=== PATIENT | male | born 1960 | race Caucasian/White ===

== ENCOUNTER 2024-05-05 15:32 | Emergency (ER) | payer OTHER, SELFPAY ==
--- NOTE | ~2024-05-05 | XR_ITS ---
EXAMINATION: XR WRIST, RIGHT CLINICAL INFORMATION: Laceration question foreign body COMPARISON: None available. TECHNIQUE: PA, lateral, and oblique views of the right wrist. FINDINGS: No radiopaque body detected. Mild osteoarthritis of the first carpometacarpal joint with small marginal osteophytes. Subtle amorphous appearing calcification ulnar to the distal ulna perhaps related to old soft tissue injury XR/XR wrist RT min 3V IMPRESSION: 1. No radiopaque body detected. 2. Osteoarthritis of the first carpometacarpal joint. 3. Subtle calcification as above may reflect prior/old soft tissue trauma
[2024-05-05 15:52] VITALS: BP 164/108; PULSE 83; RESP 18; TEMP 36.6; O2SAT 99; BMI 33.0
--- NOTE | 2024-05-05 15:53 | ED.SKABFB ---
HPI - Skin/Abscess/Foreign Bdy General Chief complaint: Wound/Laceration Stated complaint: R wrist laceration Time Seen by Provider: 05/05/24 18:45 Source: patient Mode of arrival: ambulatory Limitations: no limitations History of Present Illness HPI narrative: Patient is a 63-year-old male who presents emergency department for evaluation of an accidental laceration to the volar aspect of the right wrist, reportedly horizontal across. Reports that there was active bleeding but not ?spraying out? pressure dressing applied. States that he was lifting a piece of glass into a dumpster when it shattered accidentally causing laceration. Reports last tetanus vaccination likely more than 5 years ago. Denies numbness tingling or cold sensation to the hand. Related Data Allergies Allergy/AdvReac Type Severity Reaction Status Date / Time Penicillins Allergy Rash Verified 05/05/24 15:55 Review of Systems Review of Systems: Yes all other systems are reviewed and are negative Physical Exam Vital Signs: Vital Signs: Last Vital Signs Temp 97.8 F 05/05/24 15:52 Pulse 83 05/05/24 15:52 Resp 18 05/05/24 15:52 BP 164/108 H 05/05/24 15:52 Pulse Ox 99 05/05/24 15:52 O2 Del Method Room Air 05/05/24 15:52 BMI result Body Mass Index 33.0 Appearance: Alert.?Oriented to person, place and time. No acute distress.?Normal affect. Neck: Normal inspection.? Neck supple.?? CVS: Heart sounds normal. Normal heart rate and rhythm.? Pulses normal.?? Respiratory: No respiratory distress.? Lung sounds clear to auscultation bilaterally?? Skin: Skin warm and dry.? Normal skin color.? Right wrist volar ulnar aspect with 1.5 cm laceration exposure of subcutaneous tissue, no arterial bleeding, no active bleeding Extremities: No extremity edema. Full range of motion to wrist. Neuro: Moves all extremities spontaneously. Sensation intact bilaterally. Ambulates with normal steady gait. Medical Decision Making Medical Decision Making MDM Narrative: Patient is a 63-year-old male who presents emergency department for evaluation of an accidental laceration to the right wrist sustained from glass. He is up-to-date on tetanus vaccination. He has not on any anticoagulants or denies any known coagulation disorders. XR was obtained to evaluate for retained foreign body, no evidence of such in no acute osseous abnormality. The wound was irrigated extensively with saline and Betadine, repaired under aseptic technique as per procedural portion of this note. Discussed monitoring of the wound, signs and symptoms of infection that would warrant re-evaluation, outpatient follow-up with PCP and suture removal. All questions answered. Stable for discharge Differential Diagnosis Differential Diagnoses: The differential diagnosis associated with the presentation includes (See narrative above) Independent Interpretation I performed an independent interpretation of an: Plain X-Ray (See narrative above) Radiology Impression Discussion of test interpretation with radiology: I have reviewed the radiologist's reading. Radiologist Impression: XR/XR wrist RT min 3V IMPRESSION: 1. No radiopaque body detected. 2. Osteoarthritis of the first carpometacarpal joint. 3. Subtle calcification as above may reflect prior/old soft tissue trauma Prescription Management I considered prescription management with: Pain Medication (Acetaminophen/ibuprofen) Procedures Laceration Laceration 1: Site: upper extremity Side (If applicable): right Size (cm): 1.5 Description: linear Depth: simple, single layer Local Anesthetic: lidocaine 1% Amount of anesthesia used (mL): 2 Pre-repair: wound explored, irrigated extensively and deep structures intact Skin layer closed with: nylon Size (cm): 4-0 Number of sutures: 2 Technique: simple, interrupted Discharge Plan Discharge Clinical Impression: Laceration of wrist, right Qualifiers: Encounter type: initial encounter Qualified Code(s): S61.511A - Laceration without foreign body of right wrist, initial encounter Patient Disposition: Home, Self-Care Instructions: Laceration (ED) Additional Instructions: Sutures will need to be removed in 7 days, you may return to the emergency department or follow-up with your primary care provider for removal. Monitor the area for signs of infection including redness, swelling, increased pain, pus-like discharge, fevers, chills. Referrals: Physician,Unknown J [Primary Care Provider] - Print Language: Pashto
[2024-05-05] MEDS: Lidocaine HCl 1 % MPF 5 ML VIAL SUBCUT (19:14)
[2024-05-05 19:44] VITALS: BP 164/108; PULSE 83; RESP 18; TEMP 36.6; O2SAT 99
== END 2024-05-05 19:44 | disposition home or self-care (01) ==
PROVIDERS: Emergency Provider Internal Medicine
DX: S61.511A Laceration without foreign body of right wrist, initial encounter (principal); W25.XXXA Contact with sharp glass, initial encounter; Y93.9 Activity, unspecified; Y92.9 Unspecified place or not applicable; Y99.9 Unspecified external cause status
CPT/HCPCS: 12001; 73110; 99283; 99284